=== PATIENT | female | born 1965 | race Caucasian/White ===

== ENCOUNTER 2021-09-30 07:09 | Observation (INO) ==
[2021-09-30] MEDS ORDERED: Lactated Ringers 1000 ml BAG 1,000 ML IV ONE ×2 (07:21→11:52)
[2021-09-30 10:28] LABS: Hematocrit 35 % (35-47); Hemoglobin 11.6 g/dL (12.0-16.0); Mean Corpuscular HGB Conc 33 g/dL (31-36); Mean Corpuscular Hemoglobin 29 pg (27-31); Mean Corpuscular Volume 87 fL (80-97); Mean Platelet Volume 7.4 fL (7.4-10.4); Platelet Count 262 10^3/uL (150-450); Red Blood Count 4.07 10^6 /uL (3.70-4.87); Red Cell Distribution Width 14 % (10-15); White Blood Count 19.8 10^3/uL (3.5-10.8)
[2021-09-30] MEDS ORDERED: Ondansetron 4 mg VIAL 2 MG/ML 2 ml VIAL IV PRN ×2 (10:38→18:03)
[2021-09-30] MEDS ORDERED: cefTRIAXone 1 gm/50 mL D5W 1 GM/50 ML BAG IV ONE (10:45)
[2021-09-30] MEDS ORDERED: cefTRIAXone 1 gm/50 mL D5W 1 GM/50 ML BAG IV SCH (10:45)
[2021-09-30] MEDS ORDERED: Morphine 2 MG/ML SYRINGE IV PRN ×2 (10:55→12:48)
[2021-09-30 11:29] LABS: Albumin 3.5 g/dL (3.2-5.2); Albumin/Globulin Ratio 1.6 (1-3); Calcium 8.3 mg/dL (8.6-10.3); Globulin 2.2 g/dL (2-4); Potassium 3.9 mmol/L (3.5-5.0); Total Bilirubin 0.3 mg/dL (0.2-1.0); Total Protein 5.7 g/dL (6.4-8.9); eGFR CKD-EPI 52.4 (>60)
[2021-09-30 12:00] LABS: RBC Morphology Normal (Normal)
[2021-09-30] MEDS ORDERED: Cefepime 1 GM IV - ED ONCE IV ONE (12:00)
[2021-09-30 12:01] LABS: ABS Eosinophils 0.1 10^3/ul (0-0.6); ABS Lymphocytes 0.4 10^3/ul (1.0-4.8); ABS Monocytes 0.3 10^3/ul (0-0.8); ABS Neutrophils 19.1 10^3/ul (1.5-7.7); Eosinophil % 0.3 %; Lymphocyte % 1.9 %
[2021-09-30] MEDS ORDERED: Lactated Ringers 500 ml BAG 500 ML IV ONE (12:13)
[2021-09-30 12:15] LABS: Urine Appearance Cloudy; Urine Color Yellow; Urine Ketones Negative (Negative); Urine Nitrite Positive (Negative); Urine Protein 2+ (100 mg/dL) (Negative); Urine Specific Gravity 1.015 (1.005-1.030); Urine Urobilinogen 0.2 (Negative) (Negative)
[2021-09-30 12:16] LABS: Urine Bilirubin Negative (Negative); Urine Glucose Negative (Negative)
[2021-09-30 12:22] LABS: Urine Bacteria Absent (Absent); Urine Red Blood Cell 3+(>10/hpf) (Absent); Urine Squamous Epithelial Cell Present (Absent); Urine White Blood Cell 3+(>20/hpf) (Absent)
[2021-09-30 12:23] LABS: CRP High Sensitivity 68.83 mg/L (<2.00)
[2021-09-30] MEDS ORDERED: Acetaminophen IV 1 GM/100ML 100 ML IV PRN (12:47)
[2021-09-30 13:23] LABS: Erythrocyte Sed Rate 17 mm/Hr (0-29)
[2021-09-30] MEDS: Heparin 5000 UNITS/ML 1 mL VIAL SUBCUT SCH ×2 (15:00→22:44)
[2021-09-30] MEDS ORDERED: Ondansetron 4 mg VIAL 2 MG/ML 2 ml VIAL ONE (16:53)
[2021-09-30] MEDS ORDERED: Propofol 10 MG/ML 20 ML BTL ONE ×2 (16:53→16:58)
[2021-09-30] MEDS ORDERED: Dexamethasone IV 4 MG/ML VIAL 1 ml VIAL ONE (16:53)
[2021-09-30] MEDS ORDERED: Naloxone 0.4 mg VIAL 0.4 mg/ml 1 ml VIAL IV PRN (18:03)
[2021-09-30] MEDS ORDERED: HYDROcodone/ACETAMIN 5/325 mg TAB PO PRN (18:03)
[2021-09-30] MEDS ORDERED: fentaNYL 100 mcg/2 ml 50 MCG/ML VIAL IV PRN (18:03)
[2021-09-30] MEDS ORDERED: fentaNYL 100 mcg/2 ml 50 MCG/ML VIAL ONE (18:23)
[2021-09-30] MEDS ORDERED: Gentamicin ADULT 160 MG in NS 0.9% 100 ml BAG 100 ML IVPB ONE (18:30)
[2021-09-30] MEDS: Lactated Ringers 1000 ml BAG 1,000 ML IV SCH (19:59)
[2021-09-30] MEDS: Morphine 2 MG/ML SYRINGE IV PRN (21:01)
[2021-10-01] MEDS: Cefepime 1 GM in Dextrose 1 GM/50 ML BAG IV SCH ×2 (00:22→12:11)
[2021-10-01] MEDS: Morphine 2 MG/ML SYRINGE IV PRN ×3 (00:22→09:20)
[2021-10-01] MEDS: Lactated Ringers 1000 ml BAG 1,000 ML IV SCH (02:46)
[2021-10-01 06:03] LABS: ABS Eosinophils 0.1 10^3/ul (0-0.6); ABS Lymphocytes 0.8 10^3/ul (1.0-4.8); ABS Monocytes 0.7 10^3/ul (0-0.8); ABS Neutrophils 14.9 10^3/ul (1.5-7.7); Eosinophil % 0.3 %; Hematocrit 33 % (35-47); Mean Corpuscular HGB Conc 34 g/dL (31-36); Mean Corpuscular Hemoglobin 30 pg (27-31); Mean Corpuscular Volume 88 fL (80-97); Mean Platelet Volume 7.8 fL (7.4-10.4); Platelet Count 199 10^3/uL (150-450); Red Blood Count 3.69 10^6 /uL (3.70-4.87); Red Cell Distribution Width 14 % (10-15); White Blood Count 16.5 10^3/uL (3.5-10.8)
[2021-10-01] MEDS: Heparin 5000 UNITS/ML 1 mL VIAL SUBCUT SCH (06:23)
[2021-10-01 06:46] LABS: C Reactive Protein 192.33 mg/L (<8.01); Calcium 8.1 mg/dL (8.6-10.3); Magnesium 1.8 mg/dL (1.9-2.7); Potassium 4.4 mmol/L (3.5-5.0); eGFR CKD-EPI 78.6 (>60)
[2021-10-01] MEDS ORDERED: Fluoxetine 40 mg CAP (NF) PO SCH (09:00)
[2021-10-01 11:54] VITALS: BP 137/83
== END 2021-10-01 14:15 | disposition home or self-care (01) ==
LOC: ED 07:09 → EDHOLD 07:09 → SUATTDRO 10:12 → EDHOLD 12:29 → SSU 13:26
PROVIDERS: ADMIT Internal Medicine; ATTEND Internal Medicine